=== PATIENT | male | born 1970 ===

== ENCOUNTER 2019-09-11 18:53 | Emergency (ER) | payer SELFPAY ==
[~2019-09-11] VITALS: Ht 182.9 cm; Wt 149.7 kg
[2019-09-11 19:04] VITALS: BP 147/81; Ht 182.9 cm; Wt 149.7 kg
== END 2019-09-11 20:47 | disposition home or self-care (01) ==
LOC: ED 18:53
DX: S93.609A Unspecified sprain of unspecified foot, initial encounter (principal); Z88.6 Allergy status to analgesic agent; W20.8XXA Other cause of strike by thrown, projected or falling object, initial encounter; Y93.89 Activity, other specified; Y92.89 Other specified places as the place of occurrence of the external cause; Y99.8 Other external cause status
CPT/HCPCS: Q0092